=== PATIENT | male | born 1960 | race American Indian/Alaskan Native ===

== ENCOUNTER 2018-08-24 12:03 | Emergency (ER) | payer OTHER ==
--- NOTE | 2018-08-24 12:14 | Emergency Department Report ---
ED Head Trauma HPI - General Stated complaint: FALL FROM STEPS Time Seen by Provider: 08/24/18 12:04 Source: patient, EMS Mode of arrival: Stretcher Limitations: No Limitations - History of Present Illness Initial comments: Patient is a 58-year-old male that presents emergency room with complaints of headache and head injury. Patient states he fell backwards down a step and hit his head on a truck bumper. Patient states he then went to get up and hit his head on the underneath part of the bulbar sustaining a laceration to his forehead. Patient complains of a headache at a 4 out of 10. Patient denies loss of consciousness. Patient states the pain is in the back of his head near the top of his neck and in the forehead. Patient denies any other physical complaints. Patient complains of lightheadedness. Patient states his symptoms are better with rest and worse with movement. MD Complaint: head injury, head pain, fall -: Sudden Arrival Conditions: Positive: C-spine immobilization present Mechanism of Injury: work related injury Location: frontal, occipital Loss of Consciousness: no Previous Trauma to this Area: No Place: work Radiation: neck Severity: moderate Severity scale (0 -10): 6 Quality: aching Consistency: constant Provoking factors: none known Other Injuries: laceration Associated Symptoms: vertigo - Related Data Previous Rx's Medication Instructions Recorded Last Taken Type Metaxalone [Skelaxin] 800 mg PO TID PRN #15 tablet 08/24/18 Unknown Rx traMADol [Ultram] 50 mg PO Q4HR PRN #12 tablet 08/24/18 Unknown Rx ED Review of Systems ROS: Stated complaint: FALL FROM STEPS Other details as noted in HPI Constitutional: denies: chills, fever Eyes: denies: eye pain, eye discharge, vision change ENT: denies: ear pain, throat pain Respiratory: denies: cough, shortness of breath, wheezing Cardiovascular: denies: chest pain, palpitations Endocrine: no symptoms reported Gastrointestinal: denies: abdominal pain, nausea, diarrhea Genitourinary: denies: urgency, dysuria Musculoskeletal: denies: back pain, joint swelling, arthralgia Skin: denies: rash, lesions Neurological: headache. denies: weakness, paresthesias Psychiatric: denies: anxiety, depression Hematological/Lymphatic: denies: easy bleeding, easy bruising ED Past Medical Hx - Past Medical History Previous Medical History?: Yes Hx Hypertension: Yes Hx Diabetes: Yes - Surgical History Past Surgical History?: No - Family History Family history: no significant - Social History Smoking Status: Never Smoker Substance Use Type: None - Medications Home Medications: Home Medications Medication Instructions Recorded Confirmed Last Taken Type Metaxalone [Skelaxin] 800 mg PO TID PRN #15 tablet 08/24/18 Unknown Rx traMADol [Ultram] 50 mg PO Q4HR PRN #12 tablet 08/24/18 Unknown Rx ED Physical Exam - General Limitations: No Limitations General appearance: alert, in no apparent distress - Head Head exam: Present: other (occipital scalp contusion. Parietal scalp contusion and abrasion. Forehead laceration just above the nose) - Eye Eye exam: Present: normal appearance, PERRL Pupils: Present: normal accommodation - ENT ENT exam: Present: mucous membranes moist - Neck Neck exam: Present: normal inspection - Respiratory Respiratory exam: Present: normal lung sounds bilaterally. Absent: respiratory distress, wheezes, rales, rhonchi - Cardiovascular Cardiovascular Exam: Present: regular rate, normal rhythm. Absent: systolic murmur, diastolic murmur, rubs, gallop - GI/Abdominal GI/Abdominal exam: Present: soft, normal bowel sounds. Absent: distended, tenderness - Rectal Rectal exam: Present: deferred - Extremities Exam Extremities exam: Present: normal inspection - Back Exam Back exam: Present: normal inspection - Neurological Exam Neurological exam: Present: alert, oriented X3 - Psychiatric Psychiatric exam: Present: normal affect, normal mood - Skin Skin exam: Present: warm, dry, normal color, abrasion, ecchymosis, other. Absent: rash ED Course Vital Signs 08/24/18 08/24/18 12:37 16:00 Temperature 98.3 F Pulse Rate 83 86 Respiratory 18 18 Rate Blood Pressure 140/86 Blood Pressure 136/76 [Right] O2 Sat by Pulse 98 99 Oximetry - Reevaluation(s) Reevaluation #1: Discussed all results with patient. We will close the patient's forehead laceration. 08/24/18 15:10 Patient's forehead laceration closed with Dermabond. See procedure note. Patient given tetanus 08/24/18 15:20 Reevaluation #2: Discussed all results with patient. Patient is stable for discharge. Patient will be discharged home. Patient agrees to plan of care. Patient given discharge instructions. Patient given laceration instructions. laceration precautions given to patient. Patient voiced understanding of discharge instructions. 08/24/18 15:34 - Laceration /Wound Repair Head Wound Location: head, face Wound's Depth, Shape: superficial Wound Explored: clean Betadine Prep?: Yes Wound Repaired With: Dermabond Sterile Dressing Applied?: Yes Progress: Patient's 1 cm forehead laceration closed with Dermabond. Site was cleaned well prior to applying Dermabond. Edges well approximated. Patient tolerated procedure well. - Radiology Data Radiology results: report reviewed CT HEAD WITHOUT CONTRAST INDICATION : Head injury, pain, fall. TECHNIQUE: Axial imaging performed from the skull apex through the skull base without the use of contrast. All CT scans at this location are performed using CT dose reduction for ALARA by means of automated exposure control. COMPARISON: None FINDINGS: Parenchyma: No acute intracranial hemorrhage or parenchymal abnormality. Ventricles: Ventricles are normal in size and appear symmetric. Bones: No acute osseous abnormality. Sinuses: Sinuses and mastoid air cells are clear. Soft tissues: Soft tissues including the orbits appear normal. IMPRESSION: No acute abnormality. CT CERVICAL SPINE WITHOUT CONTRAST INDICATION: Injury, pain. TECHNIQUE: Axial imaging performed through the cervical without the use of contrast. Sagittal and coronal reconstructed images were also reviewed. All CT scans at this location are performed using CT dose reduction for ALARA by means of automated exposure control. COMPARISON: None FINDINGS: Alignment: Spinal alignment is normal. Bones: There is no acute osseous abnormality. Mild multilevel discogenic DJD is present. C4-5, C5-6 and C6-7 are the most affected levels. The posterior elements are in appropriate relationship. Mild facet arthropathy is noted throughout the cervical region. Soft tissues: No acute or significant incidental soft tissue abnormality. IMPRESSION: [id number] cervical spondylosis. No evidence for acute injury. - Medical Decision Making Patient is a 8-year-old male presents emergency room for fall and head trauma. Patient found to have a occipital contusion and parietal abrasion and frontal laceration. Patient denied loss of consciousness But due to the fact the patient had lightheadedness and so many areas of trauma on his head and a CT scan was done. Patient had a head CT was negative. Patient had a C-spine CT and it was negative. Patient was placed in a c-collar. Patient's forehead laceration closed with Dermabond. See procedure note. - Differential Diagnosis contusion. Laceration. Abrasion. Head injury. Concussion. Critical care attestation.: If time is entered above; I have spent that time in minutes in the direct care of this critically ill patient, excluding procedure time. ED Disposition Clinical Impression: Lightheadedness, Abrasion Head injuries Qualifiers: Encounter type: initial encounter Qualified Code(s): S09.90XA - Unspecified injury of head, initial encounter Forehead laceration Qualifiers: Encounter type: initial encounter Qualified Code(s): S01.81XA - Laceration without foreign body of other part of head, initial encounter Scalp hematoma Qualifiers: Encounter type: initial encounter Qualified Code(s): S00.03XA - Contusion of scalp, initial encounter Headache Qualifiers: Headache type: post-traumatic Headache chronicity pattern: acute headache Intractability: not intractable Qualified Code(s): G44.319 - Acute post- traumatic headache, not intractable Disposition: DC- TO HOME OR SELFCARE Is pt being admited?: No Does the pt Need Aspirin: No Condition: Stable Instructions: Laceration (ED), Minor Head Injury (ED), Abrasion (ED), Skin Adhesive Care (ED) Additional Instructions: Patient to follow up with primary care in 2-3 days. Patient to follow up with orthopedist in 2-3 days. Patient to return to ER if condition worsens. Patient to take Tylenol or ibuprofen when necessary for pain. Patient to rest. Patient to take meds as directed. Prescriptions: Metaxalone [Skelaxin] 800 mg PO TID PRN #15 tablet PRN Reason: Spasms traMADol [Ultram] 50 mg PO Q4HR PRN #12 tablet PRN Reason: Pain Referrals: MADDY MIMS MD [Primary Care Provider] - 2-3 Days Time of Disposition: 15:37
--- NOTE | 2018-08-24 14:05 | Cat Scan Report ---
CT CERVICAL SPINE WITHOUT CONTRAST INDICATION: Injury, pain. TECHNIQUE: Axial imaging performed through the cervical without the use of contrast. Sagittal and c oronal reconstructed images were also reviewed. All CT scans at this location are performed using CT dose reduction for ALARA by means of automated exposure control. COMPARISON: None FINDINGS: Alignment: Spinal alignment is normal. Bones: There is no acute osseous abnormality. Mild multilevel discogenic DJD is present. C4-5, C5- 6 and C6-7 are the most affected levels. The posterior elements are in appropriate relationship. Mild facet arthropathy is noted throughout the cervical region. Soft tissues: No acute or significant incidental soft tissue abnormality. IMPRESSION: [id number] cervical spondylosis. No evidence for acute injury. Signer Name: Alan Merchant Jr, MD Signed: 08/24/2018 2:01 PM Workstation Name: [id number]
--- NOTE | 2018-08-24 14:17 | Cat Scan Report ---
CT HEAD WITHOUT CONTRAST INDICATION : Head injury, pain, fall. TECHNIQUE: Axial imaging performed from the skull apex through the skull base without the use of con trast. All CT scans at this location are performed using CT dose reduction for ALARA by means of aut omated exposure control. COMPARISON: None FINDINGS: Parenchyma: No acute intracranial hemorrhage or parenchymal abnormality. Ventricles: Ventricles are normal in size and appear symmetric. Bones: No acute osseous abnormality. Sinuses: Sinuses and mastoid air cells are clear. Soft tissues: Soft tissues including the orbits appear normal. IMPRESSION: No acute abnormality. Signer Name: Alan Merchant Jr, MD Signed: 08/24/2018 2:13 PM Workstation Name: [id number]
[2018-08-24] MEDS ORDERED: HYDROGEN PEROXIDE ONE (15:08)
[2018-08-24] MEDS ORDERED: BOOSTRIX IM ONE (15:11)
[2018-08-24 16:01] VITALS: BP 136/76
== END 2018-08-24 16:15 | disposition home or self-care (01) ==
LOC: ED 12:03
DX: S01.21XA Laceration without foreign body of nose, initial encounter (principal); G44.319 Acute post-traumatic headache, not intractable; I10 Essential (primary) hypertension; E11.9 Type 2 diabetes mellitus without complications; Z88.5 Allergy status to narcotic agent; W10.9XXA Fall (on) (from) unspecified stairs and steps, initial encounter; Y93.89 Activity, other specified; Y92.89 Other specified places as the place of occurrence of the external cause; Y99.8 Other external cause status
CPT/HCPCS: 70450; 72125; 90471; 90715